=== PATIENT | male | born 1995 | race Hispanic/Latino ===

== ENCOUNTER 2017-10-12 14:14 | Emergency (ER) | payer BC ==
[2017-10-12 15:10] LABS: #Basophils 0.1 thou/uL (0.0-0.2); #Eosinphils 0.1 thou/uL (0.0-0.7); #Lymphocytes 2.4 thou/uL (1.20-3.40); #Monocytes 0.5 thou/uL (0.11-0.59); #Neutrophils 8.7 thou/uL (1.40-6.50); %Basophils 0.6 % (0.0-1.0); %Eosinophils 0.4 % (0.0-10.0); %Lymphocytes 20.6 % (21.0-51.0); %Monocytes 4.5 % (0.0-10.0); Hematocrit 49.6 % (42.0-52.0); Mean Platelet Volume 7.1 fL (7.4-10.4); Red Blood Cell (RBC) Count 5.39 mill/uL (4.70-6.10); White Blood Cell (WBC) Count 11.8 thou/uL (4.8-10.8)
[2017-10-12 15:16] LABS: Bilirubin Negative (Negative); Blood, Urine Negative (Negative); Glucose, Urine (Dipstick) Negative (Negative); Ketone, Urine Trace mg/dL (Negative); Nitrite Negative (Negative); Protein, Urine (Dipstick) Negative (Neg-Trace); Urobilinogen 0.2 mg/dL (0.2-1.0)
[2017-10-12 15:24] LABS: Lactic Acid - Sepsis 1.2 mmol/L (0.5-2.2)
[2017-10-12 15:30] LABS: ALT (SGPT) 15 U/L (8-55); AST (SGOT) 13 U/L (5-34); Alkaline Phosphatase 65 U/L (40-150); Anion Gap 12 mmol/L (10-20); BUN (Urea Nitrogen) 16 mg/dL (8.9-20.6); Bilirubin, Total 0.6 mg/dL (0.2-1.2); Calc. Creatinine Clearance 0 mL/min (70-130); Calcium 9.8 mg/dL (7.8-10.44); Carbon Dioxide 28 mmol/L (22-29); Chloride 103 mmol/L (98-107); Estimated GFR-MDRD Greater than 90; Lipase 44 U/L (8-78); Protein, Total 7.8 g/dL (6.0-8.3)
[2017-10-12] MEDS ORDERED: Ketorolac Tromethamine 30 MG/ML VIAL ONE (15:37)
[2017-10-12] MEDS ORDERED: Ondansetron HCl/PF 4 MG/2 ML Vial ONE (15:37)
[2017-10-12] MEDS ORDERED: ISOVUE-370 76%-LOCM 1 ML ONE (17:22)
[2017-10-12] MEDS ORDERED: Iopamidol 370 76% 50 ML VIAL FS ONE (17:22)
--- NOTE | 2017-10-12 18:54 | CT ---
CONTRAST ENHANCED CT OF THE ABDOMEN AND PELVIS: History: Right lower quadrant pain for two weeks. Technique: Contrast enhanced images of the abdomen and pelvis obtained after administration of IV and oral contrast. FINDINGS: The lung bases are unremarkable. No evidence of free intraperitoneal air is seen. The liver, spleen, pancreas, gallbladder, adrenal glands and kidneys are unremarkable. No dilated loo ps of small bowel seen. Normal appendix is visualized. No distention of the colon or other colonic ab normality is seen. IMPRESSION: Normal contrast enhanced CT images of the abdomen and pelvis. POS: [id number]
== END 2017-10-12 18:25 | disposition home or self-care (01) ==
LOC: ERS 14:14
DX: K29.70 Gastritis, unspecified, without bleeding (principal); F90.9 Attention-deficit hyperactivity disorder, unspecified type; Z79.899 Other long term (current) drug therapy
CPT/HCPCS: 74177; 80053; 81003; 83605; 83690; 85025; 96361; 96374; J1885; J2405

== ENCOUNTER 2019-09-05 08:13 | Outpatient (CLI) | payer BC ==
--- NOTE | 2019-09-05 09:20 | MRI ---
MRI CERVICAL SPINE WITHOUT CONTRAST: HISTORY: Radiculopathy. COMPARISON: None. FINDINGS: The craniocervical junction is unremarkable. No significant cord signal abnormality. There is reversal of normal cervical curvature, apex at C5-6. C1-2: No significant stenosis. C2-3: No significant stenosis. C3-4: No significant stenosis. C4-5: Small central disc protrusion without significant mass effect. C5-6: Broad based disc osteophyte with mild ventral cord flattening and mild central canal stenosis. Mild narrowing of right neural foramen. No significant left foraminal stenosis C6-7: Right subarticular disc protrusion with right ventral hemicord flattening and moderate narrowin g of the right subarticular zone with crowding of the right C7 nerve root. There is [id number] right neural foraminal stenosis. No significant left foraminal narrowing. C7-T1: No significant stenosis. IMPRESSION: Multilevel degenerative change of the cervical spine, most focal at the right subarticular zone of C6 -7, right hemicord flattening and effacement of right C7 nerve root. Transcribed Date/Time: 09/05/2019 9:28 AM
== END 2019-09-05 08:14 | disposition home or self-care (01) ==
LOC: SCSMRI 08:13
PROVIDERS: ATTEND Specialist
DX: M47.22 Other spondylosis with radiculopathy, cervical region (principal); M53.82 Other specified dorsopathies, cervical region
CPT/HCPCS: 72141